=== PATIENT | female | born 1995 | race Caucasian/White ===

== ENCOUNTER 2020-12-29 17:11 | Outpatient (CLI) | payer OTHER ==
[~2020-12-29 17:11] MED LIST: COLACE 100MG C100 MG PO; IBUPROFEN600 MG PO; NORCO 5-325 TA1 EACH PO
[2021-01-16] MEDS ORDERED: HYDROCODONE-AC1 EAC1 PO (07:51)
[2021-01-16] MEDS ORDERED: IBUPROFEN800 MG PO (07:51)
[2021-01-16] MEDS ORDERED: DOCUSATE SODIU100 MG PO (07:51)
== END 2020-12-29 19:18 | disposition home or self-care (01) ==
LOC: GENOP 17:11
DX: O46.93 Antepartum hemorrhage, unspecified, third trimester (principal); O99.891 Other specified diseases and conditions complicating pregnancy; R10.9 Unspecified abdominal pain; Z3A.36 36 weeks gestation of pregnancy
CPT/HCPCS: 81001; G0463

== ENCOUNTER 2021-01-15 12:58 | Outpatient (CLI) | payer OTHER ==
[2021-01-15 13:49] LABS: HEMOGLOBIN 9.6 gm/dl (12.3-15.3); RED BLOOD COUNT 4.33 M/UL (4.00-5.10); WHITE BLOOD COUNT 8.8 K/UL (4.5-11.0)
[2021-01-16] MEDS ORDERED: CEPHALEXIN500 MG PO (06:06)
[2021-01-16] MEDS ORDERED: PRILOSEC OTC20 MG PO (06:07)
[2021-01-16] MEDS ORDERED: LEXAPRO10 MG PO (06:07)
[2021-01-16] MEDS ORDERED: FLINTSTONES1 EAC1 PO (06:08)
[2021-01-16] MEDS ORDERED: IBUPROFEN800 MG PO (07:51)
[2021-01-16] MEDS ORDERED: HYDROCODONE-AC1 EAC1 PO (07:51)
[2021-01-16] MEDS ORDERED: DOCUSATE SODIU100 MG PO (07:51)
== END 2021-01-15 13:43 | disposition home or self-care (01) ==
LOC: GENOP 12:58
PROVIDERS: Obstetrics & Gynecology
DX: Z01.812 Encounter for preprocedural laboratory examination (principal); Z88.1 Allergy status to other antibiotic agents; O09.899 Supervision of other high risk pregnancies, unspecified trimester; Z3A.00 Weeks of gestation of pregnancy not specified
CPT/HCPCS: 36415; 81001; 85025

== ENCOUNTER 2021-01-16 05:28 | Inpatient (IN) | payer OTHER ==
[~2021-01-16] VITALS: Ht 167.6 cm; Wt 81.6 kg
[2021-01-16] MEDS ORDERED: CEPHALEXIN500 MG PO (06:06)
[2021-01-16] MEDS ORDERED: PRILOSEC OTC20 MG PO (06:07)
[2021-01-16] MEDS ORDERED: LEXAPRO10 MG PO (06:07)
[2021-01-16] MEDS ORDERED: FLINTSTONES1 EAC1 PO (06:08)
[2021-01-16] MEDS ORDERED: HYDROCODONE-AC1 EAC1 PO (07:51)
[2021-01-16] MEDS ORDERED: IBUPROFEN800 MG PO (07:51)
[2021-01-16] MEDS ORDERED: DOCUSATE SODIU100 MG PO (07:51)
[2021-01-17 04:59] LABS: HEMOGLOBIN 8.7 gm/dl (12.3-15.3)
== END 2021-01-17 18:11 | disposition home or self-care (01) | DRG 788 ==
LOC: OB 05:28
PROVIDERS: ADMIT Obstetrics & Gynecology
PROC: 10D00Z1 Extraction of Products of Conception, Low, Open Approach (ICD-10-PCS; 2021-01-16)
PROC: 4A1HX4Z Monitoring of Products of Conception, Cardiac Electrical Activity, External Approach (ICD-10-PCS; principal; 2021-01-16 07:30)
DX: O34.211 Maternal care for low transverse scar from previous cesarean delivery (principal); N85.8 Other specified noninflammatory disorders of uterus; Z3A.39 39 weeks gestation of pregnancy; Z37.0 Single live birth; Z20.822 Contact with and (suspected) exposure to COVID-19
CPT/HCPCS: 36415; 81001; 82800; 85014; 85018; 85025; 90471; 90715; C9113; J0690; J1170; J1200; J1885; J2274; J2405; J2590; J3010; J7120

== ENCOUNTER 2021-11-21 11:59 | Emergency (ER) | payer OTHER ==
[~2021-11-21 11:59] MED LIST changes: +CEPHALEXIN500 MG PO; +DOCUSATE SODIU100 MG PO; +FLINTSTONES1 EAC1 PO; +HYDROCODONE-AC1 EAC1 PO; +IBUPROFEN800 MG PO; +LEXAPRO10 MG PO; +PRILOSEC OTC20 MG PO
[2021-11-21 14:00] LABS: HEMOGLOBIN 9.6 gm/dl (12.3-15.3); RED BLOOD COUNT 4.55 M/UL (4.00-5.10); WHITE BLOOD COUNT 7.7 K/UL (4.5-11.0)
[2021-11-21 14:31] LABS: BUN/CREATININE RATIO 16 (0-10)
== END 2021-11-21 18:17 | disposition home or self-care (01) ==
LOC: ER1 11:59 → GENOP 11:59 → EDSTATUS 12:13 → ER1 18:17
PROVIDERS: Nurse Practitioner
DX: O99.013 Anemia complicating pregnancy, third trimester (principal); D64.9 Anemia, unspecified; O99.891 Other specified diseases and conditions complicating pregnancy; R06.02 Shortness of breath; R05.9 Cough, unspecified; Z20.822 Contact with and (suspected) exposure to COVID-19; Z3A.28 28 weeks gestation of pregnancy
CPT/HCPCS: 0240U; 80053; 81001; 82550; 82553; 83874; 84484; 85025; 87086; 93005; 99285; Q9967

== ENCOUNTER → 2021-12-21 | Outpatient (CLI) | payer OTHER ==
[~2021-12-21] VITALS: Ht 167.6 cm; Wt 81.6 kg
== END ==
LOC: OPSV 13:00
DX: D64.9 Anemia, unspecified (principal)
CPT/HCPCS: 96365; J1756

== ENCOUNTER → 2022-01-23 | Outpatient (CLI) | payer BC, OTHER ==
[~2022-01-23] VITALS: Ht 167.6 cm; Wt 86.2 kg
== END ==
LOC: OPSV 10:00
DX: D64.9 Anemia, unspecified (principal)
CPT/HCPCS: 96365; J1756

== ENCOUNTER 2022-02-06 07:30 | Inpatient (IN) | payer BC, OTHER ==
[~2022-02-06] VITALS: Ht 167.6 cm; Wt 89.8 kg
[2022-02-06] MEDS ORDERED: PRILOSEC OTC20 MG PO (08:47)
[2022-02-06] MEDS ORDERED: FLINTSTONES M200 MCG PO (08:48)
[2022-02-06 09:04] LABS: RED BLOOD COUNT 4.7 M/UL (4.00-5.10); WHITE BLOOD COUNT 8.5 K/UL (4.5-11.0)
[2022-02-06] MEDS ORDERED: HYDROCODON-ACE1 EAC2 PO (10:21)
[2022-02-06] MEDS ORDERED: COLACE 100MG C100 MG PO (10:21)
[2022-02-06] MEDS ORDERED: IBUPROFEN800 MG PO (10:21)
[2022-02-07 06:01] LABS: HEMOGLOBIN 8.5 gm/dl (12.3-15.3)
[2022-02-07] MEDS ORDERED: FERROUS SULFAT325 MG PO (10:30)
== END 2022-02-07 17:05 | disposition home or self-care (01) | DRG 788 ==
LOC: OB 08:28
PROVIDERS: ADMIT Obstetrics & Gynecology
PROC: 4A1HXCZ Monitoring of Products of Conception, Cardiac Rate, External Approach (ICD-10-PCS; 2022-02-06)
PROC: 10D00Z1 Extraction of Products of Conception, Low, Open Approach (ICD-10-PCS; principal; 2022-02-06 07:30)
DX: O34.211 Maternal care for low transverse scar from previous cesarean delivery (principal); O99.344 Other mental disorders complicating childbirth; F41.9 Anxiety disorder, unspecified; Z37.0 Single live birth; Z3A.39 39 weeks gestation of pregnancy; Z20.822 Contact with and (suspected) exposure to COVID-19; F32.A Depression, unspecified; O77.0 Labor and delivery complicated by meconium in amniotic fluid; O99.02 Anemia complicating childbirth; D64.9 Anemia, unspecified; Z82.49 Family history of ischemic heart disease and other diseases of the circulatory system; Z80.0 Family history of malignant neoplasm of digestive organs; Z88.0 Allergy status to penicillin
CPT/HCPCS: 36415; 81001; 82800; 85014; 85018; 85025; 86850; 86900; 86901; C9113; J1580; J1885; J2274; J2370; J2405; J2590; J3010; J7120